=== PATIENT | male | born 1955 | race Caucasian/White ===

== ENCOUNTER 2018-11-25 07:27 | Emergency (ER) | payer SELFPAY ==
[~2018-11-25] VITALS: Ht 182.9 cm; Wt 90.0 kg
[~2018-11-25 07:27] MED LIST: AVELOX400 MG PO; CIALIS20 MG PO; FLEXERIL PO; HYDROCHLOROT25 MG PO; LISINOP/HCTZ1 TA2 PO; LISINOPRIL20 M1 PO; LORTAB5 PO; NAPROSYN500 MG PO; ONE DAILY FOR MEN 50 PO; VIAGRA100 MG PO; VIT C250 MG PO
[2018-11-25] MEDS ORDERED: LOSARTAN/HCT1 TA2 PO (07:53)
[2018-11-25] MEDS ORDERED: KEFLEX500 M1 PO (08:29)
[2018-11-25 09:00] VITALS: BP 168/97
== END 2018-11-25 09:00 | disposition home or self-care (01) | DRG 125 ==
LOC: ED 07:27
PROC: 0HQ1XZZ Repair Face Skin, External Approach (ICD-10-PCS; principal; 2018-11-25)
DX: S01.111A Laceration without foreign body of right eyelid and periocular area, initial encounter (principal); W01.190A Fall on same level from slipping, tripping and stumbling with subsequent striking against furniture, initial encounter; Y92.009 Unspecified place in unspecified non-institutional (private) residence as the place of occurrence of the external cause